=== PATIENT | male | born 1955 | race Caucasian/White ===

== ENCOUNTER → 2017-10-17 | Outpatient (CLI) | payer BC ==
[~2017-10-17] MED LIST: IBUPROFEN800 MG; LISINOPRIL-HCT1 EACH; PRISTIQ50 MG PO; SIMVASTATIN80 MG PO
== END | disposition home or self-care (01) ==
DX: M16.11 Unilateral primary osteoarthritis, right hip (principal); R26.2 Difficulty in walking, not elsewhere classified; M25.551 Pain in right hip; M25.651 Stiffness of right hip, not elsewhere classified; Z74.1 Need for assistance with personal care; M62.81 Muscle weakness (generalized)
CPT/HCPCS: 97161 GP; 97165 GO; 97530 GP; 97535 GO